=== PATIENT | female | born 1980 | race Caucasian/White ===

== ENCOUNTER 2017-11-13 13:51 | Emergency (ER) | payer BC, MEDICARE ==
[~2017-11-13] VITALS: Ht 165.1 cm; Wt 72.6 kg
[2017-11-13] MEDS ORDERED: NS 250 ML (IVPB) BAG IV ONE (14:15)
[2017-11-13] MEDS ORDERED: CATHETER FLUSH 10 ML SYR IV PRN (14:15)
[2017-11-13] MEDS ORDERED: fentaNYL INJECTION 100 MCG/2 ML AMP IVP ONE (14:15)
[2017-11-13] MEDS ORDERED: IOHEXOL 350 MG/ML 100 ML (OMNIPAQUE 350) VIAL IV ONE (14:15)
[2017-11-13] MEDS ORDERED: NS IV 1000 ML 1,000 ML IV SCH (14:15)
[2017-11-13] MEDS ORDERED: ONDANSETRON 4 MG/2 ML (SDV) Z0FRAN IVP ONE (14:15)
--- NOTE | 2017-11-13 14:15 | ED Abdominal Pain ---
General Chief Complaint: Abdominal/GI Problems Stated Complaint: LOWER RIGHT SIDE ABD PAIN/NAUSEA/FEVER Source of Information: Patient Exam Limitations: No Limitations History of Present Illness Date Seen by Provider: Nov 13, 2017 Time Seen by Provider: 14:13 Initial Comments to ER with reports ofrright-sided abdominal pain. This began 4 days ago and was affecting both the upper and lower quadrants of the abdomen. As time has progressed the pain seems to be more localized to the right lower quadrant. She' s had chills, diarrhea, nausea. She still has both her appendix and her gallbladder. Last food intake was a handful of pretzels at 10 AM Timing/Duration: 2-3 Days Severity/Quality: Moderate Radiation: No Radiation Activities at Onset: None Associated Symptoms: Denies Symptoms Allergies and Home Medications Allergies Coded Allergies: meperidine (Verified Allergy, Unknown, 11/13/17) promethazine (Verified Allergy, Unknown, 11/13/17) Patient Home Medication List Home Medication List Reviewed: Yes Review of Systems Constitutional: see HPI EENTM: No Symptoms Reported Respiratory: No Symptoms Reported Cardiovascular: No Symptoms Reported Gastrointestinal: See HPI, Abdominal Pain, Diarrhea, Nausea Genitourinary: No Symptoms Reported Musculoskeletal: no symptoms reported Skin: no symptoms reported Psychiatric/Neurological: No Symptoms Reported Endocrine: No Symptoms Reported Hematologic/Lymphatic: No Symptoms Reported Past Dqwkubl-Civvkn-Hggldw Hx Patient Social History Recent Foreign Travel: No Contact w/Someone Who Travel: No Physical Exam Vital Signs Capillary Refill : General Appearance: WD/WN, no apparent distress HEENT: PERRL/EOMI, normal ENT inspection Neck: non-tender, full range of motion Respiratory: no respiratory distress, no accessory muscle use Gastrointestinal: normal bowel sounds, soft, rebound, tenderness Extremities: normal range of motion, non-tender Neurologic/Psychiatric: alert, normal mood/affect, oriented x 3 Skin: normal color, warm/dry Progress/Results/Core Measures Results/Orders Lab Results Laboratory Tests Test 11/13/17 14:09 11/13/17 14:33 Range/Units White Blood Count 8.9 4.3-11.0 10^3/uL Red Blood Count 4.94 4.35-5.85 10^6/uL Hemoglobin 16.2 H 11.5-16.0 G/DL Hematocrit 46 35-52 % Mean Corpuscular Volume 94 80-99 FL Mean Corpuscular Hemoglobin 33 25-34 PG Mean Corpuscular Hemoglobin Concent 35 32-36 G/DL Red Cell Distribution Width 12.3 10.0-14.5 % Platelet Count 318 130-400 10^3/uL Mean Platelet Volume 8.8 7.4-10.4 FL Neutrophils (%) (Auto) 43 42-75 % Lymphocytes (%) (Auto) 46 H 12-44 % Monocytes (%) (Auto) 8 0-12 % Eosinophils (%) (Auto) 3 0-10 % Basophils (%) (Auto) 1 0-10 % Neutrophils # (Auto) 3.8 1.8-7.8 X 10^3 Lymphocytes # (Auto) 4.2 H 1.0-4.0 X 10^3 Monocytes # (Auto) 0.7 0.0-1.0 X 10^3 Eosinophils # (Auto) 0.2 0.0-0.3 10^3/uL Basophils # (Auto) 0.1 0.0-0.1 10^3/uL Sodium Level 141 135-145 MMOL/L Potassium Level 3.4 L 3.6-5.0 MMOL/L Chloride Level 104 98-107 MMOL/L Carbon Dioxide Level 27 21-32 MMOL/L Anion Gap 10 5-14 MMOL/L Blood Urea Nitrogen 8 7-18 MG/DL Creatinine 0.96 0.60-1.30 MG/DL Estimat Glomerular Filtration Rate > 60 BUN/Creatinine Ratio 8 Glucose Level 71 70-105 MG/DL Total Bilirubin 0.6 0.1-1.0 MG/DL Aspartate Amino Transf (AST/SGOT) 18 5-34 U/L Alanine Aminotransferase (ALT/SGPT) 22 0-55 U/L Alkaline Phosphatase 98 40-136 U/L Total Protein 7.9 6.4-8.2 GM/DL Albumin 4.7 H 3.2-4.5 GM/DL Urine Color YELLOW Urine Clarity SLIGHTLY CLOUDY Urine pH 7 5-9 Urine Specific [place] 1.005 L 1.016-1.022 Urine Protein NEGATIVE NEGATIVE Urine Glucose (UA) NEGATIVE NEGATIVE Urine Ketones NEGATIVE NEGATIVE Urine Nitrite NEGATIVE NEGATIVE Urine Bilirubin NEGATIVE NEGATIVE Urine Urobilinogen NORMAL NORMAL MG/DL Urine Leukocyte Esterase NEGATIVE NEGATIVE Urine RBC (Auto) NEGATIVE NEGATIVE Urine RBC NONE /HPF Urine WBC NONE /HPF Urine Squamous Epithelial Cells 0-2 /HPF Urine Crystals NONE /LPF Urine Bacteria NEGATIVE /HPF Urine Casts NONE /LPF Urine Mucus NEGATIVE /LPF Urine Culture Indicated NO My Orders Orders - MARIELA WEINSTEIN MUD ANALYSIS OPERATOR Cbc With Automated Diff (11/13/17 13:56) Comprehensive Metabolic Panel (11/13/17 13:56) Ua Culture If Indicated (11/13/17 13:56) Urine Bedside (11/13/17 13:56) Iv Heplock-Insert (Order) (11/13/17 13:56) Ondansetron Injection (Zofran Injectio (11/13/17 14:15) Fentanyl Injection (Sublimaze Injection (11/13/17 14:15) Ns Iv 1000 Ml (Sodium Chloride 0.9%) (11/13/17 14:15) Ct Abd/Pelv W (Appendicitis) (11/13/17 14:12) Iohexol Injection (Omnipaque 350 Mg/Ml 1 (11/13/17 14:15) Sodium Chloride Flush (Catheter Flush Sy (11/13/17 14:15) Ns (Ivpb) (Sodium Chloride 0.9%) (11/13/17 14:15) Pharmacy Communication (Pharmacy Communi (11/13/17 14:14) Ketorolac Injection (Toradol Injection) (11/13/17 15:00) Medications Given in ED Current Medications Medications Dose Ordered Sig/Renard Route Start Time Stop Time Status Last Admin Dose Admin Fentanyl Citrate 50 mcg ONCE ONCE IVP 11/13/17 14:15 11/13/17 14:16 DC 11/13/17 14:24 50 MCG Iohexol 100 ml ONCE ONCE IV 11/13/17 14:15 11/13/17 14:16 DC 11/13/17 14:31 100 ML Ondansetron HCl 8 mg ONCE ONCE IVP 11/13/17 14:15 11/13/17 14:16 DC 11/13/17 14:24 8 MG Sodium Chloride 10 ml NEEDED PRN IV 11/13/17 14:15 11/13/17 14:32 10 ML Sodium Chloride 250 ml ONCE ONCE IV 11/13/17 14:15 11/13/17 14:16 DC 11/13/17 14:32 80 ML Diagnostic Imaging Diagonstic Imaging: CT Comments NAME: COURTNEY SHELTON S MED REC#: [id number] PT STATUS: REG ER : 1980 PHYSICIAN: MARIELA WEINSTEIN APRN ADMIT DATE: 11/13/17/ER Draft Date of Exam:11/13/17 CT ABD/PELV W (APPENDICITIS) PROCEDURE: CT abdomen and pelvis with contrast, rule out appendicitis. TECHNIQUE: Multiple contiguous axial images were obtained through the abdomen and pelvis after the administration of intravenous contrast. INDICATION: Right lower quadrant pain as well as fever and nausea. No prior studies are available for comparison. The lung bases are clear. No discrete liver mass is identified. Gallbladder is unremarkable. The pancreas and spleen are unremarkable. No adrenal mass is detected. The kidneys are unremarkable. The aorta is non-aneurysmal. No central retroperitoneal lymphadenopathy is seen. The small and large bowel loops are normal in caliber. No obstruction is seen. The appendix is not identified with certainty. However, no inflammatory process in the right lower quadrant is seen. Small lymph nodes in the right lower quadrant are present. There is no free fluid or fluid collection identified. The bladder is unremarkable. IMPRESSION: No CT evidence of acute appendicitis. CT was not definitely visualized. No inflammatory process in the right lower quadrant is seen. There are small lymph nodes in the right lower quadrant, perhaps owing to mesenteric adenitis. Study is otherwise unremarkable. Dictated on workstation # [id number] Dict: 11/13/17 1447 Trans: 11/13/17 1452 CVB [id number] Interpreted by: LETTY EL MD Electronically signed by: Departure Impression Primary Impression: Mesenteric adenitis Disposition: 01 HOME, SELF-CARE Condition: Stable Departure-Patient Inst. Decision time for Depature: 14:59 Referrals: SARAH SEO MD (PCP/Family) Primary Care Physician Patient Instructions: Mesenteric Lymphadenitis Add. Discharge Instructions: 1. Tylenol and Motrin for pain control 2. Return to ER for any concerns 3.All discharge instructions reviewed with patient and/or family. Voiced understanding. Scripts Ondansetron (Zofran Odt) 8 Mg Tab.rapdis 8 MG PO Q6H PRN for NAUSEA/VOMITING-1ST LINE, #14 TAB Prov: MARIELA WEINSTEIN APRN 11/13/17 Work/School Note: Work Release Form Date Seen in the Emergency Department: Nov 13, 2017 Return to Work: Nov 15, 2017 MARIELA WEINSTEIN APRN Nov 13, 2017 14:15
[2017-11-13 14:18] LABS: BASOPHILS # (AUTO) 0.1 10^3/uL (0.0-0.1); BASOPHILS % (AUTO) 1 % (0-10); EOSINOPHILS # (AUTO) 0.2 10^3/uL (0.0-0.3); EOSINOPHILS % (AUTO) 3 % (0-10); HEMATOCRIT 46 % (35-52); HEMOGLOBIN 16.2 G/DL (11.5-16.0); LYMPHOCYTES # (AUTO) 4.2 X 10^3 (1.0-4.0); LYMPHOCYTES % (AUTO) 46 % (12-44); MEAN CORPUSCULAR HEMOGLOBIN 33 PG (25-34); MEAN CORPUSCULAR HGB CONC 35 G/DL (32-36); MEAN CORPUSCULAR VOLUME 94 FL (80-99); MEAN PLATELET VOLUME 8.8 FL (7.4-10.4); MONOCYTES # (AUTO) 0.7 X 10^3 (0.0-1.0); MONOCYTES % (AUTO) 8 % (0-12); NEUTROPHILS # (AUTO) 3.8 X 10^3 (1.8-7.8); NEUTROPHILS % (AUTO) 43 % (42-75); PLATELET COUNT 318 10^3/uL (130-400); RED BLOOD COUNT 4.94 10^6/uL (4.35-5.85); RED CELL DISTRIBUTION WIDTH 12.3 % (10.0-14.5); WHITE BLOOD COUNT 8.9 10^3/uL (4.3-11.0)
[2017-11-13 14:45] LABS: BILIRUBIN,URINE NEGATIVE (NEGATIVE); CLARITY,URINE SLIGHTLY CLOUDY; COLOR,URINE YELLOW; GLUCOSE, URINE (UA) NEGATIVE (NEGATIVE); KETONES,URINE NEGATIVE (NEGATIVE); LEUKOCYTE ESTERASE ,URINE NEGATIVE (NEGATIVE); NITRITE,URINE NEGATIVE (NEGATIVE); PH,URINE 7 (5-9); PROTEIN,URINE NEGATIVE (NEGATIVE); UROBILINOGEN,URINE NORMAL (NORMAL)
[2017-11-13 14:48] LABS: ALANINE AMINOTRANSFERASE 22 U/L (0-55); ALBUMIN 4.7 GM/DL (3.2-4.5); ALKALINE PHOSPHATASE 98 U/L (40-136); BILIRUBIN,TOTAL 0.6 MG/DL (0.1-1.0); BUN/CREATININE RATIO 8; CARBON DIOXIDE 27 MMOL/L (21-32); CHLORIDE 104 MMOL/L (98-107); CREATININE SERUM 0.96 MG/DL (0.60-1.30); GFR ESTIMATED > 60; GLUCOSE 71 MG/DL (70-105); POTASSIUM 3.4 MMOL/L (3.6-5.0); SODIUM 141 MMOL/L (135-145); TOTAL PROTEIN 7.9 GM/DL (6.4-8.2)
[2017-11-13 14:53] LABS: BACTERIA,URINE NEGATIVE /HPF; SQUAMOUS EPITHELIAL CELL,UR 0-2 /HPF
--- NOTE | 2017-11-13 14:53 | Diagnostic Imaging Report ---
PROCEDURE: CT abdomen and pelvis with contrast, rule out appendicitis. TECHNIQUE: Multiple contiguous axial images were obtained through the abdomen and pelvis after the administration of intravenous contrast. INDICATION: Right lower quadrant pain as well as fever and nausea. No prior studies are available for comparison. The lung bases are clear. No discrete liver mass is identified. Gallbladder is unremarkable. The pancreas and spleen are unremarkable. No adrenal mass is detected. The kidneys are unremarkable. The aorta is non-aneurysmal. No central retroperitoneal lymphadenopathy is seen. The small and large bowel loops are normal in caliber. No obstruction is seen. The appendix is not identified with certainty. However, no inflammatory process in the right lower quadrant is seen. Small lymph nodes in the right lower quadrant are present. There is no free fluid or fluid collection identified. The bladder is unremarkable. IMPRESSION: No CT evidence of acute appendicitis. CT was not definitely visualized. No inflammatory process in the right lower quadrant is seen. There are small lymph nodes in the right lower quadrant, perhaps owing to mesenteric adenitis. Study is otherwise unremarkable. Dictated by: Dictated on workstation # [id number]
[2017-11-13] MEDS ORDERED: ONDA8TAB9 PO (15:00)
[2017-11-13] MEDS ORDERED: KETOROLAC 30 MG/ML VIAL IVP ONE (15:00)
[2017-11-13 15:21] LABS: CALCIUM 10.1 MG/DL (8.5-10.1)
[2017-11-13 15:48] VITALS: BP 113/86
== END 2017-11-13 15:48 | disposition home or self-care (01) ==
LOC: EDUNIT# 13:51 → ER 13:56
DX: I88.0 Nonspecific mesenteric lymphadenitis (principal); Z88.6 Allergy status to analgesic agent
CPT/HCPCS: 36415; 74177; 80053; 81000; 85025; 96361; 96374; 96375

== ENCOUNTER → 2017-11-24 | Outpatient (CLI) | payer MEDICARE ==
[~2017-11-24] MED LIST: HYDR-3816 PO; ONDA8TAB9 PO
--- NOTE | 2017-11-24 08:11 | Diagnostic Imaging Report ---
EXAM: RIGHT UPPER QUADRANT ULTRASOUND DATE: November 24, 2017. COMPARISON: CT abdomen pelvis November 13, 2017. INDICATION: 37-year-old female, right upper quadrant abdominal pain. PROCEDURE: Two-dimensional grayscale and color doppler ultrasound examination of the right upper quadrant is performed. FINDINGS: Liver: The liver is of normal size and echotexture without solid or cystic masses. The main portal vein is patent with normal directional flow. Bile ducts and gallbladder: There is no pericholecystic fluid, gallbladder wall thickening or gallstones. The gallbladder wall measures 0.2 cm. There is no intrahepatic or extrahepatic biliary ductal dilation. The common bile duct measures 0.4 cm. Right kidney: Unremarkable right kidney. No hydronephrosis. The right kidney measures 11.0 cm x 3.0 cm x 4.4 cm. Pancreas: Limited visualized portions of the pancreas are unremarkable. IMPRESSION: 1. Unremarkable right upper quadrant ultrasound. Dictated by: Dictated on workstation # [id number]
== END ==
LOC: RAD 07:11
PROVIDERS: ATTEND Surgery
DX: R10.11 Right upper quadrant pain (principal)
CPT/HCPCS: 76705

== ENCOUNTER → 2017-11-26 | Outpatient (CLI) | payer MEDICARE ==
[~2017-11-26] MED LIST changes: +CATHETER FLUSH 10 ML SYR IV PRN
--- NOTE | 2017-11-26 11:55 | Diagnostic Imaging Report ---
INDICATION: Right upper quadrant pain. FINDINGS: Patient was administered 5.2 mCi technetium 99m Choletec intravenously and imaging over the abdomen was performed. At 45 minutes, patient ingested 8 ounces of Ensure and gallbladder ejection fraction was calculated. There is homogeneous uptake of activity by the liver. Prompt excretion of activity into the common duct and gallbladder is seen. There is normal passage of activity into the small bowel. Gallbladder ejection fraction is normal at 47%. Normal values are 35% or greater. IMPRESSION: Normal HIDA scan and gallbladder ejection fraction. Dictated by: Dictated on workstation # [id number]
== END ==
LOC: CARD 09:29
PROVIDERS: ATTEND Surgery
DX: R10.11 Right upper quadrant pain (principal)
CPT/HCPCS: 78227

== ENCOUNTER 2017-12-01 05:50 | Outpatient (CLI) | payer MEDICARE ==
[~2017-12-01] VITALS: Ht 165.1 cm; Wt 72.6 kg
[~2017-12-01 05:50] MED LIST changes: -CATHETER FLUSH 10 ML SYR IV PRN; -HYDR-3816 PO
[2017-12-01] MEDS ORDERED: HYDR-3816 PO (12:35)
== END 2017-12-01 12:43 | disposition home or self-care (01) ==
LOC: PREOP 05:50
PROVIDERS: ATTEND Surgery
DX: Z01.818 Encounter for other preprocedural examination (principal)

== ENCOUNTER 2017-12-02 10:28 | Day surgery (SDC) | payer MEDICARE ==
[2017-12-01] MEDS: morphine INJ 10 MG/ML 1ML (SYR OR VIAL) IVP PRN (14:58)
[~2017-12-02] VITALS: Ht 165.1 cm; Wt 72.6 kg
[~2017-12-02 10:28] MED LIST changes: +HYDR-3816 PO
[2017-12-02 10:35] VITALS: BP 111/77
[2017-12-02] MEDS ORDERED: LACTATED RINGERS 1,000 ML IV PRN (10:36)
[2017-12-02] MEDS ORDERED: ceFAZolin INJECTION 1,000 MG in NS (IVPB) 50 ML IV ONE (10:45)
[2017-12-02] MEDS ORDERED: fentaNYL INJECTION 100 MCG/2 ML AMP ONE ×2 (11:21→12:49)
[2017-12-02] MEDS ORDERED: fentaNYL INJECTION 100 MCG/2 ML AMP IV ONE (11:30)
[2017-12-02] MEDS ORDERED: BUP/EPI 0.5% 1:200,000 (SENSORCAINE) 30 ML VIAL ONE (12:39)
--- NOTE | 2017-12-02 12:40 | Progress Note-Pre Operative ---
Pre-Operative Progress Note H&P Reviewed The H&P was reviewed, patient examined and no changes noted. Date Seen by Provider: Dec 02, 2017 Time Seen by Provider: 12:30 Date H&P Reviewed: Dec 02, 2017 Time H&P Reviewed: 12:35 Pre-Operative Diagnosis: Biliary dyskinesia, RLQ abdominal pain RITA STEPHENSON APRN Dec 02, 2017 12:40 pm
[2017-12-02] MEDS ORDERED: ACETAMINOPHEN 325 MG TABLET PO PRN (12:45)
[2017-12-02] MEDS ORDERED: morphine INJ 10 MG/ML 1ML (SYR OR VIAL) IVP PRN (12:45)
[2017-12-02] MEDS ORDERED: HYDROcodone/APAP 5 MG/325 MG (LORTAB) TAB PO ONE (12:45)
[2017-12-02] MEDS ORDERED: ONDANSETRON 4 MG/2 ML (SDV) Z0FRAN IVP PRN ×2 (12:45→15:00)
[2017-12-02] MEDS ORDERED: ONDANSETRON 4 MG/2 ML (SDV) Z0FRAN ONE (12:48)
[2017-12-02] MEDS ORDERED: DEXAMETHASONE 10 MG/ML (DECADRON) 1 ML VIAL ONE (12:48)
[2017-12-02] MEDS ORDERED: proPOfol 200 MG/20 ML (DIPRIVAN) VIAL IV ONE (12:48)
[2017-12-02] MEDS ORDERED: LIDOCAINE PF 2% 5 ML (XYLOCAINE) VIAL ONE (12:48)
[2017-12-02] MEDS ORDERED: MIDAZOLAM 2 MG/2 ML (VERSED) VIAL ONE (12:48)
[2017-12-02] MEDS ORDERED: ROCURONIUM 10 MG/ML 5 ML SYRINGE IV ONE (12:49)
[2017-12-02] MEDS ORDERED: SEVOFLURANE (ULTANE) 15 ML INHAL SOLN ONE ×7 (12:49→14:41)
[2017-12-02] MEDS ORDERED: LACTATED RINGERS 1,000 ML IV ONE (14:41)
--- NOTE | 2017-12-02 14:46 | Progress Note-Post Operative ---
Post-Operative Progess Note Surgeon (s)/Media Sales Executive (s) Surgeon MEGAN UREÑA MD Media Sales Executive: nish cee [employer] Pre-Operative Diagnosis Biliary dyskinesia, RLQ abdominal pain Post-Operative Diagnosis symptomatic biliary dyskinesia, right indirect inguinal hernia, surgically absent appendix. Procedure & Operative Findings Date of Procedure 12/02/17 Procedure Performed/Findings laparoscopic cholecystectomy and right inguinal hernia repair with mesh. Anesthesia Type GET Estimated Blood Loss Estimated blood loss (mL): minimal Specimens/Packing Specimens Removed gallbladder. MEGAN UREÑA MD Dec 02, 2017 2:46 pm
--- NOTE | 2017-12-02 14:49 | Discharge Inst-Surgical ---
D/C Lap Instructions-NIRANJAN New, Converted, or Re-Newed RX: RX on Chart Follow Up Appt in 2 weeks Activity as tolerated No driving for 24 hours No driving while on pain medications Incentive Spirometry use every 2 hours while awake Regular Diet Symptoms to Report: Fever over 101 degree F, Nausea/Vomiting Infection Signs and Symptoms to report: Increased redness, Foul odor of wound, Increased drainage Bathing instructions: May shower Operative Area Clean/Dry; Keep incision clean/dry If any problems/questions: Contact your physician or go to Emergency Room MEGAN UREÑA MD Dec 02, 2017 2:49 pm
[2017-12-02] MEDS ORDERED: fentaNYL INJECTION 100 MCG/2 ML AMP IVP PRN (15:00)
[2017-12-02] MEDS: morphine INJ 10 MG/ML 1ML (SYR OR VIAL) IVP PRN (15:06)
[2017-12-02 15:55] VITALS: BP 121/71
[2017-12-02] MEDS ORDERED: HYDROcodone/APAP 5 MG/325 MG (LORTAB) TAB PO NR (16:19)
[2017-12-02] MEDS ORDERED: HYDROcodone/APAP 5 MG/325 MG (LORTAB) TAB ONE (16:19)
[2017-12-02 16:30] VITALS: BP 125/87
--- NOTE | 2017-12-02 16:49 | Anesthesia-General Post-Op ---
General Patient Condition Mental Status/LOC: Same as Preop Cardiovascular: Satisfactory Nausea/Vomiting: Absent Respiratory: Satisfactory Pain: Controlled Complications: Absent Post Op Complications Complications None Follow Up Care/Instructions Patient Instructions None needed. Anesthesia/Patient Condition Patient Condition Patient is doing well, no complaints, stable vital signs, no apparent adverse anesthesia problems. No complications reported per nursing. [place] [facility] [place] Yes ALCON IBRAHIM CRNA Dec 02, 2017 16:49
[2017-12-02 17:00] VITALS: BP 114/84
[2017-12-02 17:33] VITALS: BP 114/84
--- NOTE | 2017-12-02 20:46 | OPERATIVE REPORT ---
DATE OF SERVICE: 12/02/2017 ATTENDING PRIMARY CARE PHYSICIAN: Amanda Winston MD PREOPERATIVE DIAGNOSES: Biliary dyskinesia, chronic right-sided abdominal pain. POSTOPERATIVE DIAGNOSES: Symptomatic biliary dyskinesia, surgically absent appendix, indirect right inguinal hernia. PROCEDURES: Laparoscopic cholecystectomy, diagnostic laparoscopy, laparoscopic right inguinal hernia repair with mesh. SURGEON: Megan Ureña MD FARMER [employer] GRAIN: David Javed APRN. ANESTHESIA: General endotracheal. ESTIMATED BLOOD LOSS: Minimal. FINDINGS: Slight gallbladder wall dilatation. Liver appeared normal. After examination of the cecum and terminal ileum as well as taking down the white lines of Toldt, there was a surgically absent appendix. There was a right indirect inguinal hernia with nothing within the hernia sac. DISPOSITION: The patient tolerated the procedure well. INDICATIONS: The patient is a 37-year-old female with right-sided abdominal pain for the past 6 weeks on an intermittent basis. The pain was at its worse on 11/13 and she presented to the Emergency Department where she was found to be dehydrated and a normal white count; however, hemoconcentrated. Her liver function enzymes are normal as well. A CT scan was performed, which showed mesenteric lymphadenopathy; however, no other abnormalities. She also did report low grade fevers. Upon closer examination of the CT scan, there did appear to be layering of the gallbladder in the dependent portions as well as gallbladder dilatation consistent with biliary sludge versus a dyskinesia. The possibility of chronic appendicitis also arose due to the nature of her symptomatology as well as location of her pain. A HIDA scan was performed, which did show a normal ejection fraction of 47%; however, she did have reproduction of symptoms with pain along the right side of the abdomen as well as nausea, which lasted throughout the afternoon. She also had reported radiation towards the back. DESCRIPTION OF PROCEDURE: The patient was brought to the operating room, laid supine on the table. After adequate IV pain and sedative medications and general endotracheal intubation, the abdomen was prepped and draped in standard surgical fashion. A 0.5% Marcaine and epinephrine was then used to anesthetize the overlying skin in the left upper abdominal quadrant and a small transverse skin incision was made using a 15 blade. An 0 silk suture was applied to the medial aspect of the incision for retraction and a Veress needle inserted with a low opening pressure of 0 mmHg. The abdomen was insufflated to 15 mmHg pressure. The Veress needle removed and a 5 mm Xcel trocar placed followed by a 5 mm 45 degree angle laparoscope visualizing the peritoneal cavity. A 4-quadrant abdominal exploration was performed. There was gallbladder wall dilatation. The liver, stomach, omentum, small bowel appeared to be normal. Upon further inspection, there was a right indirect inguinal hernia identified with nothing within the hernia sac. We could not visualize the appendix at this time. Under direct visualization, we then proceed to place an infraumbilical 10 mm port after the skin and peritoneal lining were anesthetized using 0.5% Marcaine with epinephrine and a transverse skin incision was made using a 15 blade. In a similar manner, a right upper abdominal quadrant 5 mm port was placed. We first proceeded with removal of the gallbladder. The patient was placed in reverse Trendelenburg position as well as plane right side up, left side down. The fundus of the gallbladder was then retracted anteriorly and superiorly. The hepatoduodenal ligament was then opened using electrocautery and hook instrument as well as blunt dissection. The entire critical view of safety was identified including the triangle of Calot as well as the cystic duct and artery as the only two structures going into the gallbladder as well as the liver behind the cystic plate and proximal gallbladder. A timeout was then taken and the cystic duct and artery were then clipped proximally, distally and cut with EndoShears. The gallbladder was then dissected off the liver bed using electrocautery and hook instrument with visualization of good hemostasis as well as no leaking ducts of Luschka. We then placed the patient in Trendelenburg position again plane right side up, left side down. The appendix was not initially visualized. The terminal ileum was identified going into the cecum. We then proceeded with dissection of the cecum taken down to the white line of Toldt laterally using a hook instrument, electrocautery as well as blunt dissection. No appendix was identified and what appeared to be an appendiceal stump and scar tissue was identified most likely from her previous hysterectomy and most likely, the appendectomy was incorporated at the same time. We then proceeded with the repair of the right inguinal hernia. The peritoneal lining from the white lines of Toldt that were dissected were then extended medially until we reached the Seng's ligament medially. We then proceeded with inferior dissection encompassing the entire hernia sac using blunt dissection as well as the Sonicision with visualization of good hemostasis. A medium sized Bard 3DMax polypropylene mesh was placed and the mesh was tacked to Seng's ligament medially and to the inguinal ligament laterally. The peritoneal lining was then placed over the mesh and a few tacks placed to hold it into place with visualization of good hemostasis. The gallbladder was removed through the 10 mm port site using an EndoCatch bag. The 10 mm port site fascia and peritoneum were then closed under direct visualization using a Jamarcus-Jared device and 0 Vicryl suture. The abdomen was desufflated and remaining ports removed. All skin incisions were closed using 4-0 Monocryl running subcuticular sutures. Wounds were then cleaned and covered with Dermabond. The patient tolerated the procedure well. We will start IV and oral pain medication as well as a clear liquid diet. When she is tolerating clears, has good pain control with oral pain medication and is ambulating well, we will discharge her home. She will be instructed to do no heavy lifting or exertion for the next two weeks. Job ID: [id number] DocumentID: [id number] Dictated Date: 12/02/2017 15:00:56 Research Engineer Marine Equipment Date: 12/02/2017 20:45:41 Dictated By: MEGAN UREÑA MD
== END 2017-12-02 17:33 | disposition home or self-care (01) ==
LOC: SDC 10:28
PROVIDERS: ATTEND Surgery
DX: K40.90 Unilateral inguinal hernia, without obstruction or gangrene, not specified as recurrent (principal); K81.1 Chronic cholecystitis; F17.210 Nicotine dependence, cigarettes, uncomplicated
CPT/HCPCS: 87081; 94664

== ENCOUNTER 2019-04-24 12:25 | Emergency (ER) | payer MEDICARE ==
[~2019-04-24] VITALS: Ht 163 cm; Wt 68.0 kg
[2019-04-24] MEDS ORDERED: RT-ALBUTEROL/IPRATROPIUM 3 ML (DUONEB) VIAL INH ONE (12:45)
[2019-04-24] MEDS ORDERED: DEXAMETHASONE 10 MG/ML (DECADRON) 1 ML VIAL IM ONE (13:15)
--- NOTE | 2019-04-24 13:16 | ED Respiratory ---
General Chief Complaint: Respiratory Problems Stated Complaint: SOA Nursing Triage Note: Patient reports a cough x 6 months. Diagnosed with emphysema 2 weeks ago and being put on Breo. Patient states that she was allergic to it and stopped taking it. History of Present Illness Date Seen by Provider: Apr 24, 2019 Time Seen by Provider: 12:35 Initial Comments 38-year-old female presents for ongoing respiratory issues. She was diagnosed with emphysema and started on brio but states she did not tolerate it and had to stop. She is using her albuterol inhaler every 4-8 hours, her last dose was approximately 6 hours ago. She does 2-3 at a time, does not wait any time in between inhalations. Timing/Duration: intermittent Severity: moderate Prior Episodes/Possible Cause: occasional episodes Associated Symptoms: denies symptoms Allergies and Home Medications Allergies Coded Allergies: meperidine (Verified Allergy, Unknown, Has received Fentanyl in the past w/o issue, 12/02/17) promethazine (Verified Allergy, Unknown, 11/13/17) Home Medications Hydrocodone/Acetaminophen 1 Each Tablet, 1 EACH PO Q4H PRN for PAIN-MILD TO MODERATE, (Reported) Prednisone 20 Mg Tab, 60 MG PO DAILY Prescribed by: SHIVAM GIRON on 04/24/19 1317 Patient Home Medication List Home Medication List Reviewed: Yes Review of Systems Review of Systems Constitutional: no symptoms reported, see HPI Respiratory: see HPI, cough, dyspnea on exertion, wheezing All Other Systems Reviewed Negative Unless Noted: Yes Past Cbnbxiw-Kgrexe-Ojalbg Hx Past Med/Social Hx: Reviewed Nursing Past Med/Soc Hx Patient Social History Alcohol Use: Denies Use Recreational Drug Use: No Smoking Status: Current Everyday Smoker Type Used: Cigarettes Recent Foreign Travel: No Contact w/Someone Who Travel: No Recent Infectious Disease Expo: No Recent Hopitalizations: No Physical Abuse: No Sexual Abuse: No Mistreated: No Fear: No Seasonal Allergies Seasonal Allergies: No Past Medical History Surgeries: Yes (r knee) Section, Hysterectomy, Orthopedic Respiratory: No Cardiac: No Neurological: No Reproductive Disorders: No Genitourinary: No Gastrointestinal: No Chronic Constipation Musculoskeletal: No Endocrine: No HEENT: No Cancer: No Psychosocial: No Blood Disorders: No Physical Exam Vital Signs - First Documented 04/24/19 12:34 Temp 36.3 Pulse 79 Resp 18 B/P (MAP) 132/90 (104) Pulse Ox 97 Capillary Refill : Less Than 3 Seconds Height: 5'5.00" Weight: 160lbs. 0.0oz. 72.791626qg; 25.00 BMI Method:Stated General Appearance: WD/WN, no apparent distress Eyes: Bilateral Eye Normal Inspection, Bilateral Eye PERRL, Bilateral Eye EOMI HEENT: PERRL/EOMI, normal ENT inspection, TMs normal, pharynx normal Neck: non-tender, full range of motion, supple, normal inspection Respiratory: chest non-tender, no respiratory distress, crackles, wheezing Cardiovascular: normal peripheral pulses, regular rate, rhythm Gastrointestinal: normal bowel sounds, non tender, soft Neurologic/Psychiatric: no motor/sensory deficits, alert, normal mood/affect, oriented x 3 Skin: normal color, warm/dry Progress/Results/Core Measures Suspected Sepsis Recent Fever Within 48 Hours: No Infection Criteria Present: None New/Unexplained Altered Menta: No Sepsis Screen: No Definite Risk SIRS Temperature: Pulse: 79 Respiratory Rate: 18 Blood Pressure 132 /90 Mean: 104 Results/Orders My Orders Orders - SHIVAM GIRON Albuterol/Ipra Inhalation Soln (Duoneb I (04/24/19 12:45) Svn Small Volume Nebulizer (04/24/19 12:43) Dexamethasone Injection (Decadron Inject (04/24/19 13:15) Medications Given in ED Current Medications Medications Dose Ordered Sig/Renard Route Start Time Stop Time Status Last Admin Dose Admin Albuterol/ Ipratropium 3 ml ONCE ONCE INH 04/24/19 12:45 04/24/19 12:46 DC 04/24/19 12:48 3 ML Dexamethasone Sodium Phosphate 10 mg ONCE ONCE IM 04/24/19 13:15 04/24/19 13:16 DC 04/24/19 13:16 10 MG Vital Signs/I&O 04/24/19 04/24/19 12:34 13:22 Temp 36.3 36.3 Pulse 79 79 Resp 18 18 B/P (MAP) 132/90 (104) 132/90 (104) Pulse Ox 97 97 Capillary Refill : Less Than 3 Seconds Blood Pressure Mean: 104 POS Progress Note : Time: 12:35 Progress Note Patient seen and evaluated, will complete a DuoNeb treatment and reevaluate. 1255 improved air movement, patient does feel like this this time. We'll give Decadron 10 mg IM. 1315 discharge instructions and return precautions reviewed with the patient. All questions answered. Departure Impression Primary Impression: Emphysema with both acute and chronic bronchitis Disposition: HOME, SELF-CARE Condition: Improved Departure-Patient Inst. Decision time for Depature: 13:15 Referrals: SARAH SEO MD (PCP/Family) Primary Care Physician Patient Instructions: COPD Including Emphysema (DC) Add. Discharge Instructions: You need to take albuterol every 4 hours, waiting approximately 5 minutes between inhalation. Use the spacer as provided. Take Mucinex one tablet every 12 hours with a full glass of water. Take the Prednisone prescription as provided. Follow-up with your primary care provider in 2-3 days. Return to the emergency department for increased shortness of air, fever greater than 101 not relieved by Tylenol or ibuprofen, or new, urgent health care problems. All discharge instructions reviewed with patient and/or family. Voiced underst anding. Scripts Prednisone (Prednisone) 20 Mg Tab 60 MG PO DAILY, #12 TAB 0 Refills Prov: SHIVAM GIRON 04/24/19 Copy Copies To 1: SARAH SEO MD, AMY ARNP Apr 24, 2019 13:16 POS
[2019-04-24] MEDS ORDERED: PRD20T PO (13:17)
[2019-04-24 13:22] VITALS: BP 132/90
== END 2019-04-24 13:20 | disposition home or self-care (01) ==
LOC: EDUNIT# 12:25 → ER 12:26
DX: J43.9 Emphysema, unspecified (principal); J20.9 Acute bronchitis, unspecified; J42 Unspecified chronic bronchitis; F17.210 Nicotine dependence, cigarettes, uncomplicated; Z90.710 Acquired absence of both cervix and uterus; Z88.5 Allergy status to narcotic agent; Z88.8 Allergy status to other drugs, medicaments and biological substances
CPT/HCPCS: 94640; 96372

== ENCOUNTER → 2019-05-25 | Outpatient (CLI) | payer MEDICARE, OTHER ==
[~2019-05-25] MED LIST changes: +HOLD METFORMIN - RECEIVED CONTRAST 20 ML VIAL IV SCH; +IOHEXOL 350 MG/ML 100 ML (OMNIPAQUE 350) VIAL IV ONE; +NS 100 ML (IVPB) BAG IV ONE; +PRD20T PO
[2019-05-25 07:44] LABS: BASOPHILS % (AUTO) 1 % (0-10); EOSINOPHILS # (AUTO) 0.2 10^3/uL (0.0-0.3); EOSINOPHILS % (AUTO) 3 % (0-10); HEMATOCRIT 44 % (35-52); LYMPHOCYTES % (AUTO) 48 % (12-44); MEAN CORPUSCULAR HEMOGLOBIN 33 PG (25-34); MEAN CORPUSCULAR HGB CONC 34 G/DL (32-36); MEAN CORPUSCULAR VOLUME 96 FL (80-99); MEAN PLATELET VOLUME 8.5 FL (7.4-10.4); MONOCYTES # (AUTO) 0.5 X 10^3 (0.0-1.0); MONOCYTES % (AUTO) 8 % (0-12); NEUTROPHILS # (AUTO) 2.6 X 10^3 (1.8-7.8); NEUTROPHILS % (AUTO) 41 % (42-75); PLATELET COUNT 257 10^3/uL (130-400); RED CELL DISTRIBUTION WIDTH 13.9 % (10.0-14.5); WHITE BLOOD COUNT 6.4 10^3/uL (4.3-11.0)
[2019-05-25 08:00] LABS: BUN/CREATININE RATIO 12; CREATININE SERUM 0.85 MG/DL (0.60-1.30); GFR ESTIMATED > 60
--- NOTE | 2019-05-25 08:50 | Diagnostic Imaging Report ---
EXAMINATION: CT Chest with intravenous contrast. TECHNIQUE: Multiple contiguous axial images were obtained through the chest after the uneventful administration of intravenous contrast. All CT scans use one or more of the following dose optimizing techniques: automated exposure control, MA and/or KvP adjustment based on a patient size and exam type, or iterative reconstruction. INDICATION: Cough and dyspnea. COMPARISON: None available. FINDINGS: The lungs are clear without edema or pneumonia. No pleural effusion or pneumothorax. No suspicious nodules. Heart size is normal. No pericardial effusion. Aorta is normal in caliber. There is no axillary or supraclavicular lymphadenopathy. There is no mediastinal lymphadenopathy. Limited views of the upper abdomen show absent gallbladder. There are no suspicious osseus lesions. IMPRESSION: 1. Clear lungs, no acute abnormality in the chest. Dictated by: Dictated on workstation # [id number]
== END ==
LOC: RAD 07:28
PROVIDERS: ATTEND Nurse Practitioner Family
DX: J45.909 Unspecified asthma, uncomplicated (principal); Z72.0 Tobacco use; Z90.49 Acquired absence of other specified parts of digestive tract
CPT/HCPCS: 36415; 71260; 82565; 84520; 85025